=== PATIENT | female | born 1985 | race Caucasian/White ===

== ENCOUNTER 2025-01-07 03:33 | Emergency (ER) | payer BC, SELFPAY ==
[2025-01-07 03:36] VITALS: BP 112/76
[2025-01-07 03:53] VITALS: BP 101/81
[2025-01-07 03:54] VITALS: BMI 29.1
--- NOTE | 2025-01-07 04:01 | ED.GENMED ---
History of Present Illness
General
Chief Complaint: Headache
Source: patient
Exam Limitations: none
Time Seen by Provider: 01/07/25 03:43
Nursing documentation reviewed up to this point in time: agreed with
History of Present Illness
History of Present Illness:
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
episodes of vomiting difficulty tolerating by mouth. Did not take any medications at home. Denies any numbness weakness chest pain shortness of breath or fevers.
Review of Systems
Review of Systems
Allergies reviewed?: Yes
All Other Systems: ROS reviewed and negative except as documented in HPI and ROS
Phy Exam
Physical Exam
Physical Exam:
GENERAL: Alert , in no apparent distress
EYE: pupils equal and reactive
NECK: Supple, no significant adenopathy.
ENT: o/p clr, mmm.
CARDIAC: Regular rate and rhythm .
LUNGS: Clear breath sounds bilaterally, no acute respiratory distress, no wheezes/rales/rhonchi
ABDOMEN: Soft, without focal tenderness, no r/g, no cvat
NEUROLOGICAL: Alert and oriented, no focal neuro deficits
SKIN: Warm and dry, skin intact.
MUSCULOSKELETAL: No edema, well perfused.
PSYCH: Normal and appropriate interaction.
Course
Orders/Labs/Results
Orders:
Orders
01/07/25 04:00
0.9% Sodium Chloride 1000 ml [Nss] 1,000 ml IV BOLUS
Acetaminophen [Tylenol] 1,000 mg PO NOW STA
Diphenhydramine [Benadryl] 25 mg IV NOW STA
Metoclopramide [Reglan] 10 mg IV NOW STA
01/07/25 04:06
CBC/With Diff [Complete Blood Count/With Diff] Urgent
CMP [Comprehensive Metabolic Panel] Urgent
01/07/25 04:25
Urinalysis Reflex To Culture Urgent
Date Specimen was Collected: 01/07/25
Time Specimen was Collected: 04:24
Urine Microscopic Reflex Cult Urgent
Abnormal Lab Results
01/07/25 01/07/25
04:06 04:25
Hct 36.6 L %
(37.0-47.0)
Absolute Neuts (auto) 6.6 H 10^3/uL
(1.4-6.5)
Neutrophils % 75.8 H %
(42.2-75.2)
Lymphocytes % 17.6 L %
(20.5-51.1)
BUN 6 L mg/dl
(7-17)
Creatinine 0.5 L mg/dL
(0.6-1.0)
Glucose 102 H mg/dl
(70-99)
Urine Albumin (Reflex) 1+ A
(Neg - Trace)
01/07/25 04:06
01/07/25 04:06
Vital Signs
Initial and Last Documented VS:
Initial Vital Signs
Temp Pulse Resp BP Pulse Ox
98.7 F 81 18 112/76 97
01/07/25 03:36 01/07/25 03:36 01/07/25 03:36 01/07/25 03:36 01/07/25 03:36
Last Documented Vital Signs
Temp Pulse Resp BP Pulse Ox
98.7 F 81 18 94/64 98
01/07/25 03:36 01/07/25 03:36 01/07/25 03:36 01/07/25 05:00 01/07/25 05:00
MDM/Problems Addressed
MDM/Problems Addressed:
39-year-old female presenting to the emergency department today with concerns of headache described as consistent with her migraines. Not worst of life not abrupt in onset associated vomiting. Currently 9 weeks and 5 days. On arrival
vital signs normal patient no distress. No red flag symptoms of headache. Patient given Reglan and Benadryl with significant improvement of symptoms. Patient stable for discharge at this time. Return precautions given.
*Pulse Oximetry
SaO2: 98
Oxygen Mode of Delivery: Room air
Patient hypoxic: no (98)
*Critical Care Note
Total Time (30-74mins, 75-104mins- exclusive of procedures): Not Applicable
ED Attending Note
-
Portions of this chart may have been created with voice recognition software.� Occasional wrong word or��sound alike� substitutions may have occurred due to the inherent limitations of voice recognition software.
Discharge Plan
Departure
Patient Disposition: Home (Routine Discharge)
Date of Disposition: 01/07/25
Time of Disposition: 05:27
Patient with high blood pressure during this ER visit?: No
Condition: Good
Covid-19: Not Applicable
Discharge Problem:
Headache
Instructions: Migraines (DC)
Prescriptions:
New
metoclopramide HCl [Reglan] 10 mg tablet
10 mg PO Q6H PRN (Reason: nausea and vomiting) Qty: 7 0RF
Activity Restrictions/Additional Instructions:
You came to the emergency department today with concerns of headache. He received medications that help with symptoms. Please follow-up closely with your chief telephone operator. Return for any worsening, new or concerning symptoms.
Interventions
Interventions:
*Risk Screen - Suicide Last Done: 01/07/25 03:36
*General Assessment Last Done: 01/07/25 03:54
*Neglect/Abuse Screening Last Done: 01/07/25 05:03
*ED- Fall Risk Assessment Last Done: 01/07/25 03:54
*ED COVID-19 Vaccine History Last Done: 01/07/25 03:54
*ED Influenza Vaccine History Last Done: 01/07/25 03:54
ED- Neurological Assessment Last Done: 01/07/25 03:54
Discharge Date and Time
Print Language: [id number]
[2025-01-07] MEDS: NSS 1000 IV (04:18)
[2025-01-07] MEDS: REGLAN 10 MG IV (04:19)
[2025-01-07] MEDS: BENADRYL 25 MG IV (04:19)
[2025-01-07 04:25] LABS: Hematocrit 36.6 % (37.0-47.0); Hemoglobin 12.4 g/dL (12.0-16.0); Mean Corp Hgb Conc. 33.9 g/dL (33.0-37.0); Mean Corpuscular Volume 86.3 fL (81.0-99.0); Nucleated Red Blood Cells % 0 %; Platelet Count 203 10^3/uL (130-400); Red Cell Dist. Width 12.5 % (11.5-14.5)
[2025-01-07 04:48] LABS: Urine Character Clear (Clear)
[2025-01-07 04:50] LABS: ALT (SGPT) 14 U/L (0-35); AST (SGOT) 16 U/L (14-36); Albumin 4.3 g/dl (3.5-5.0); Alkaline Phosphatase 60 U/L (38-126); Blood Urea Nitrogen 6 mg/dl (7-17); Calcium 9.3 mg/dl (8.4-10.2); Carbon Dioxide 25 mmol/L (22-30); Chloride 103 mmol/L (98-107); Estimated Creatinine Clearance > 125 ml/min; Glucose 102 mg/dl (70-99); Potassium 3.7 mmol/L (3.5-5.1); Sodium 135 mmol/L (135-145); Total Protein 7.2 g/dl (6.3-8.2); eGFR > 60.00
[2025-01-07 05:00] VITALS: BP 94/64
[2025-01-07 05:17] LABS: Urine Red Blood Cell 0-2 /HPF (0-2); Urine White Cell 0-2 /HPF (0-5)
== END 2025-01-07 06:01 | disposition home or self-care (01) ==
LOC: EMR 03:33
PROVIDERS: Physician Assistant; EMERGENCY PHYSICIAN Emergency Medicine; FAMILY PHYSICIAN Nurse Practitioner
DX: O26.891 Other specified pregnancy related conditions, first trimester (principal); R51.9 Headache, unspecified; Z3A.09 9 weeks gestation of pregnancy
CPT/HCPCS: 99284; 96374; 96375; 96361; 80053; 81003; 81015; 85025